=== PATIENT | male | born 1975 | race Asian ===

== ENCOUNTER 2023-08-04 11:03 | Emergency (ER) | payer OTHER ==
[~2023-08-04] VITALS: Ht 170.2 cm; Wt 80.0 kg
[2023-08-04 11:06] VITALS: TEMP 98.1
[2023-08-04] MEDS ORDERED: TELM1TAB42 PO (11:13)
[2023-08-04] MEDS ORDERED: AMLO-258 PO (11:13)
[2023-08-04] MEDS ORDERED: DAPA10TA7 PO (11:13)
[2023-08-04 12:14] LABS: BASOPHILS % (AUTO) 0.3 % (0.0-2.0); EOSINOPHILS % (AUTO) 0.5 % (1.0-6.0); HEMATOCRIT 51.1 % (41-53); HEMOGLOBIN 16.9 g/dL (13.5-17.5); LYMPHOCYTES % (AUTO) 17.3 % (22.0-44.0); MEAN CORPUSCULAR HEMOGLOBIN 29.2 pg (26.0-34.0); MEAN CORPUSCULAR HGB CONC 33.1 G/dL (31.0-37.0); MEAN CORPUSCULAR VOLUME 88 fL (80-100); MONOCYTES # (AUTO) 0.5 K/uL (0.1-1.0); MONOCYTES % (AUTO) 4.3 % (2.0-9.0); NEUTROPHILS # (AUTO) 9.2 K/uL (1.8-7.7); NEUTROPHILS % (AUTO) 77.6 % (40.0-70.0); PLATELET COUNT (AUTO) 321 K/uL (150-450); RED BLOOD CELL COUNT(AUTO) 5.78 MIL/uL (4.50-5.90); RED CELL DISTRIBUTION WIDTH 13.8 % (11.5-14.5); WHITE BLOOD COUNT (AUTO) 11.8 K/uL (4.5-11.0)
[2023-08-04] MEDS: ONDANSETRON HCL 4 MG/2 ML VIAL IVP ONE (12:16)
[2023-08-04] MEDS: SODIUM CHLORIDE 0.9% 1,000 ML IV ONE (12:16)
[2023-08-04] MEDS: FAMOTIDINE 20 MG/2 ML VIAL IVP ONE (12:16)
[2023-08-04] MEDS: KETOROLAC TROMETHAMINE 30 MG/ML VIAL IVP ONE (12:17)
[2023-08-04] MEDS: ACETAMINOPHEN 500 MG TABLET PO ONE (12:17)
[2023-08-04 12:23] LABS: ANION GAP 9 mmol/L (8-16); CALCIUM, TOTAL 9.7 mg/dL (8.8-10.5); CARBON DIOXIDE 31 mmol/L (22-29); CHLORIDE 100 mmol/L (98-107); GLOMERULAR FILTR. RATE CALC > 60 mL/min (>60); GLUCOSE,RANDOM 120 mg/dL (70-110); POTASSIUM 4.1 mmol/L (3.5-5.1); SODIUM SERUM 140 mmol/L (136-145); UREA NITROGEN, BLOOD 12 mg/dL (7-18)
[2023-08-04 12:24] LABS: APPEARANCE,URINE CLEAR (CLEAR); BILIRUBIN,URINE NEGATIVE (NEGATIVE); COLOR,URINE YELLOW (YELLOW); GLUCOSE, URINE (UA) >=1000 mg/dL (NEGATIVE); KETONES,URINE NEGATIVE (NEGATIVE); LEUKOCYTE ESTERASE ,URINE NEGATIVE (NEGATIVE); NITRATE,URINE NEGATIVE (NEGATIVE); OCCULT BLOOD,URINE MODERATE (NEGATIVE); PH,URINE 5.5 (5.0-8.0); PROTEIN,URINE 30-70 mg/dL (NEGATIVE); SPECIFIC GRAVITIY, URINE 1.032 (1.003-1.030); UROBILINOGEN,URINE <=1.0 mg/dL (<=1.0)
[2023-08-04 12:29] LABS: ALANINE AMINOTRANSFERASE 34 U/L (12-78); ALBUMIN 3.9 g/dL (3.4-5.0); ALKALINE PHOSPHATASE 121 U/L (46-116); ASPARTATE AMINOTRANSFERASE 17 U/L (15-37); BILIRUBIN,TOTAL 1.2 mg/dL (0.1-1.0); LIPASE 29 U/L (16-77)
[2023-08-04 12:46] LABS: WBC,URINE 0-2 /HPF (0-5)
[2023-08-04 12:47] LABS: BACTERIA,URINE None Seen /HPF (None Seen); FINE GRANULAR CASTS,URINE 0-2 /LPF (None Seen); HYALINE CASTS, URINE 0-2 /LPF (None Seen)
[2023-08-04] MEDS ORDERED: IBUP-1492 PO (12:54)
[2023-08-04] MEDS ORDERED: ONDA-104 PO (12:54)
[2023-08-04 13:30] VITALS: BP 135/81; PULSE 84; RESP 16
== END 2023-08-04 13:34 | disposition home or self-care (01) ==
LOC: EMS 11:03
DX: R11.2 Nausea with vomiting, unspecified (principal); M79.671 Pain in right foot; E11.9 Type 2 diabetes mellitus without complications; I10 Essential (primary) hypertension
CPT/HCPCS: 99284; 96374; 96375; 96361; 80053; 81001; 83690; 85025; 36415; 73630; 82962; J3490; J1885; J2405; J7030